=== PATIENT | female | born 1960 | race Two or more races ===

== ENCOUNTER 2016-08-03 10:59 | Emergency (ER) | payer OTHER ==
[2016-08-03 11:31] VITALS: BP 117/74; PULSE 76; RESP 18; TEMP 97.9; O2SAT 96
--- NOTE | 2016-08-03 11:55 | UCPHY ---
H & P Time Seen by Provider: 08/03/16 11:44 Patient Type: New HPI/ROS: This patient complains of left ear pain of moderate intensity-5/10 since yesterday that is been gradually increasing in intensity. She has associated nasal congestion with some frontal sinus pressure also more left than the right side. No other associated symptoms. She describes the nature the pain in her years achy and sharp. She notes no exacerbating or alleviating factors. ROS: No fevers or chills. No other constitutional symptoms. HEENT: No change in her hearing. She reports no drainage from the ear. She has no sore throat. Pulmonary: No cough. GI: No vomiting. 7 point ROS is otherwise negative. 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 General: No acute distress HEENT: Nose: Clear discharge bilaterally. No sinus tenderness to percussion. Ears: External canals and tympanic membranes are clear with no erythema or abnormal findings on the right. Left ear: Patient has moderate erythema to the tympanic membrane with effusion and bulge. External canals normal.. Oropharynx: No erythema or exudates. No dysphonia. No drooling or stridor. Eyes: Pupils equal and react to light. Extraocular motions are intact. Lungs: Clear to auscultation bilaterally with no rales, rhonchi or wheeze. No respiratory distress. Cardiac: Regular rate and rhythm with no murmur gallop or rub Skin: No rash or pallor. Neuro: Alert with no focal deficits noted. Constitutional: Initial Vital Signs Temperature (C) 36.6 C 08/03/16 11:30 Heart Rate 76 08/03/16 11:30 Respiratory Rate 18 08/03/16 11:30 Blood Pressure 117/74 08/03/16 11:30 O2 Sat (%) 96 08/03/16 11:30 O2 Delivery Mode Room Air Allergies/Adverse Reactions: No Known Allergies Allergy (Verified 08/03/16 11:25) Home Medications: Medication Instructions Recorded AMOXICILLIN TRIHYDRATE [Amoxil] 875 mg PO BID #20 tablet 08/03/16 Effexor 08/03/16 Fluticasone Nasal [Flonase Nasal 2 sprays NASAL DAILY #1 mdi 08/03/16 [place] (RX)] LORazepam [Ativan (*)] 08/03/16 Departure - Departure Disposition: Home, Routine, Self-Care Condition: Good Instructions: Otitis Media (ED) Additional Instructions: Diagnosis: Otitis media Plan: Flonase steroid nasal spray (your Alertec spray is an antihistamine) Humidifier Ibuprofen for discomfort as needed Amoxil antibiotic Return for any significant worsening despite the treatment plan. Referrals: Melissa Nagel MD [Primary Care Provider] - As per Instructions Stand Alone Forms: Work Excuse Prescriptions: AMOXICILLIN TRIHYDRATE [Amoxil] 875 mg PO BID #20 tablet Fluticasone Nasal [Flonase Nasal [place] (RX)] 2 sprays NASAL DAILY #1 mdi - PQRS PQRS Measurement: NA
== END 2016-08-03 12:03 | disposition home or self-care (01) ==
LOC: CED 10:59
DX: H66.92 Otitis media, unspecified, left ear (principal)
CPT/HCPCS: G0463-PO

== ENCOUNTER → 2017-02-12 | Outpatient (CLI) | payer OTHER | LOC: FIMAGING 15:28 | PROVIDERS: ATTEND Internal Medicine | DX: Z12.31 Encounter for screening mammogram for malignant neoplasm of breast (principal) | CPT/HCPCS: G0202 ==

== ENCOUNTER → 2018-02-15 | Outpatient (CLI) | payer OTHER | LOC: FIMAGING 15:46 | PROVIDERS: ATTEND Internal Medicine | DX: Z12.31 Encounter for screening mammogram for malignant neoplasm of breast (principal) ==